=== PATIENT | female | born 1950 | race Two or more races ===

== ENCOUNTER 2024-09-09 12:00 | Emergency (ER) | payer OTHER ==
[~2024-09-09] VITALS: Ht 157.5 cm; Wt 69.5 kg
--- NOTE | 2024-09-09 12:25 | ED.PDOC ---
SOB-HPI HPI Comments 74 year old female accompanied by step-sister presents to the ED with chief complaint of SOB. Patient reports that she was being seen at the [facility] due to having been experiencing SOB for the past week and a syncopal episode earlier today. Patient relays that she did not hit her head as her step-sister caught her before she could fall. Patient states she is normally on 3L of O2 all day due to COPD. Patient notes that in June of this year, she was admitted to a hospital for 2 weeks due to an AK and later a CVA. Patient reports that the [facility] advised her to come to the ED for a CT of her brain due to the syncopal episode. Patient denies any chest pain, fever, chills, N/V, dizziness, headache, or head injury. Time Seen by MD: 12:20 Reviewed notes: Nurses Notes, Medications, Allergies Information Source: Patient, Relative (Step-sister) Mode of Arrival: Wheelchair Severity: Moderate Timing: Days Duration: Since onset Context: At Rest PE Risk Factors: None History of: COPD, CHF Prehospital treatment: Oxygen Modifying Factors: Nothing Associated Signs and Symptoms: None Past Medical History PAST MEDICAL HISTORY: Cancer, CHF, COPD, CVA, DM, High Lipids, HTN, AK Surgical History (Other): Bilateral Mastectomy GEAR GRINDER History: Denies all GEAR GRINDER Hx Family History Family History: Reviewed,noncontributory to illness Social History Smoker: Non-Smoker Alcohol: Denies ETOH Use Drugs: Denies Drug Use Lives In: Home Constitutional: denies: chills, diaphoresis, fatigue, fever, malaise, sweats, weakness, others EENTM: denies: blurred vision, double vision, ear bleeding, ear discharge, ear drainage, ear pain, ear ringing, eye pain, eye redness, hearing loss, mouth pain, mouth swelling, nasal discharge, nose bleeding, nose congestion, nose pain, photophobia, tearing, throat pain, throat swelling, voice changes, others Respiratory: reports: shortness of breath; denies: cough, hemoptysis, orthopnea, SOB at rest, SOB with excertion, stridor, wheezing, others Cardiovascular: reports: syncope; denies: chest pain, dizzy spells, diaphoresis, Dyspnea on exertion, edema, irregular heart beat, left arm pain, lightheadedness, palpitations, PND, others Gastrointestinal: denies: abdomen distended, abdominal pain, blood streaked bowels, constipated, diarrhea, dysphagia, difficulty swallowing, hematemesis, melena, nausea, poor appetite, poor fluid intake, rectal bleeding, rectal pain, vomiting, others Genitourinary: denies: abnormal vagina bleeding, burning, dyspareunia, dysuria, flank pain, frequency, hematuria, incontinence, pain, , vagina discharge, urgency, others Neurological: denies: dizziness, fainting, headache, left sided numbness, left sided weakness, numbness, paresthesia, pre-existing deficit, right sided numbness, right sided weakness, seizure, speech problems, tingling, tremors, weakness, others Musculoskeletal: denies: back pain, gout, joint pain, joint swelling, muscle pain, muscle stiffness, neck pain, others Integumetry: denies: bruises, change in color, change in hair/nails, dryness, laceration, lesions, lumps, rash, wounds, others Allergic/Immunocompromised: denies: Difficulty Healing, Frequent Infections, Hives, Itching, others Hematologic/Lymphatic: denies: anemia, blood clots, easy bleeding, easy bruising, swollen glands, others Endocrine: denies: excessive hunger, excessive sweating, excessive thirst, excessive urination, flushing, intolerance to cold, intolerance to heat, unexplained weight gain, unexplained weight loss, others Psychiatric: denies: anxiety, bipolar disorder, depression, hopeless, panic disorder, schizophrenia, sleepless, suicidal, others All Other Systems: Reviewed and Negative Physical Exam General Appearance: Moderate Distress HEENT: Normal ENT Inspection, Pharynx Normal, TMs Normal Neck: Full Range of Motion, Non-Tender, Normal, Normal Inspection Respiratory: Chest Non-Tender, Lungs Clear, No Accessory Muscle Use, No Respiratory Distress, Normal Breath Sounds Cardiovascular: No Edema, No JVD, No Murmur, No Gallop, Normal Peripheral Pulses, Regular Rate/Rhythm Breast Exam: Deferred Gastrointestinal: No Organomegaly, Non Tender, No Pulsatile Mass, Normal Bowel Sounds, Soft Genitalia: Deferred Pelvic: Deferred Rectal: Deferred Extremities: No calf tenderness, Normal capillary refill, No pedal edema Musculoskeletal : Apperance: Normal Neurologic: Alert, time study technician II-XII nml as Tested, Motor Weakness, Normal Affect, Normal Mood, No Sensory Deficits Cerebellar Function: Normal Reflexes: Normal Skin: Dry, Pallor, Warm Lymphatic: No Adenopathy EKG EKG : Pulse Rate (adult): 71 [place]: Normal Cardiac Rhythm: Afib Block: None Hypertrophy: None ST: Normal Was a procedure done? Was a procedure done?: No Differential Dx Differential Diagnosis: CHF, COPD, Other (Autonomic dysfunction, syncope) X-Ray, Labs, Meds, VS Vital Signs Date Time Temp Pulse Resp B/P (MAP) Pulse Ox O2 Delivery O2 Flow Rate FiO2 09/09/24 13:46 98.1 63 19 144/68 (93) 100 98.1 09/09/24 12:35 71 09/09/24 12:24 71 09/09/24 12:21 97.8 78 20 127/91 (103) 99 97.8 Lab Test 09/09/24 13:30 09/09/24 13:16 09/09/24 12:43 09/09/24 12:20 Range/Units Troponin I High Sensitivity 5 5 </=34 ng/L Influenza Type A Antigen Negative Negative Influenza Type B Antigen Negative Negative SARS-CoV-2 Antigen (Rapid) Negative NEGATIVE White Blood Count 11.1 H 4.4-10.8 10^3/uL Red Blood Count 4.12 4.0-5.20 10^6/uL Hemoglobin 11.2 L 12.2-16.2 g/dL Hematocrit 34.3 L 36.0-46.0 % Mean Corpuscular Volume 83.1 80.0-100.0 fL Mean Corpuscular Hemoglobin 27.0 L 28.0-32.0 pg Mean Corpuscular Hemoglobin Concent 32.6 32.0-36.0 g/dL Red Cell Distribution Width 15.6 H 11.8-14.3 % Platelet Count 287 140-450 10^3/uL Mean Platelet Volume 9.3 6.9-10.8 fL Neutrophils (%) (Auto) 83.6 H 37.0-80.0 % Lymphocytes (%) (Auto) 7.6 L 10.0-50.0 % Monocytes (%) (Auto) 7.2 0.0-12.0 % Eosinophils (%) (Auto) 1.3 0.0-7.0 % Basophils (%) (Auto) 0.3 0.0-2.0 % Neutrophils # (Auto) 9.3 H 1.6-8.6 10 ^3/uL Lymphocytes # (Auto) 0.8 0.4-5.4 10 ^3/uL Monocytes # (Auto) 0.8 0-1.3 10 ^3/uL Eosinophils # (Auto) 0.1 0-0.8 10 ^3/uL Basophils # (Auto) 0 0-0.2 10 ^3/uL Nucleated Red Blood Cells 0.0 % D-Dimer, Quantitative < 0.19 0.0-0.49 mg/L FEU Sodium Level 136 136-145 mmol/L Potassium Level 4.0 3.5-5.1 mmol/L Chloride Level 95 L 98-107 mmol/L Carbon Dioxide Level 32 H 20-31 mmol/L Anion Gap 9 5-15 Blood Urea Nitrogen 14 9-23 mg/dL Creatinine 0.79 0.550-1.02 mg/dL Glomerular Filtration Rate Calc 78 >90 mL/min BUN/Creatinine Ratio 17.7 10.0-20.0 Serum Glucose 180 H 74-106 mg/dL Calcium Level 10.4 8.7-10.4 mg/dL B-Type Natriuretic Peptide 459.14 0-100 pg/mL POC Glucose 182 H 70-106 mg/dl Head CT indicates: 1. Global brain atrophy and chronic ischemic changes without evidence of acute intracranial process. 2. Fluid in the right mastoid air cells may be due to sterile fluid or mastoiditis. Chest XR indicates: No acute disease. The patient's CBC shows an elevated white blood cell count of 11.1 The rest of the CBC is within normal limits The chemistry panel is within normal limits The BNP is 459.14 The troponin level is negative The influenza a and influenza B are negative The COVID test is negative The patient was being admitted to the hospitalist Images Reviewed?: Images reviewed and evaluated by me Time of 1ST Reevaluation: 14:50 Reevaluation 1ST: Unchanged Patient Education/Counseling: Diagnosis, Treatment, Prognosis Family Education/Counseling: Diagnosis, Treatment, Prognosis Additional Information -Reviewed patient's previous visit(s): None - The following tests were ordered, and results were reviewed by me: CT Head, CBC, BMP, EKG, Chest XR, BNP, D-Dimer, Troponin, COVID, Flu A/B, - Additional information was gathered from interviewing the following independent Historian: Sister - I reviewed and agreed with the following test results read by other provider: CT Head, Chest XR - I discussed treatments and results with medical personnel and: patient and sister Comprehensive systems review obtained and negative except for what is stated in the HPI. Departure 1 Departure Time of Disposition: 14:51 Impression: Primary Impression: Autonomic dysfunction Disposition: 09 ADMITTED INPATIENT Admit to: Tele Condition: Fair Critical Care Note Critical Care Time?: Yes (45 min-critical care time only) Stability Stability form required: Yes Unstable for transfer: Telemetry monitoring (Telemetry monitoring required), ED Physician Assesment (Clinical assesment) Heart Score Heart Score: Heart Score Response (Comments) Value History N/A 0 EKG N/A 0 Age N/A 0 Risk Factors N/A 0 Troponin N/A 0 Total 0 I personally scribed for SB CORDOVA MD ([email or web address]) on 09/09/24 at 12:25. Electronically submitted by Jeffery Kowalski ([email or web address]). I personally scribed for SB CORDOVA MD ([email or web address]) on 09/09/24 at 12:34. Electronically submitted by Jeffery Kowalski ([email or web address]). I personally scribed for SB CORDOVA MD ([email or web address]) on 09/09/24 at 14:02. Electronically submitted by Jeffery Kowalski ([email or web address]). SB CORDOVA MD Sep 09, 2024 12:25
--- NOTE | 2024-09-09 12:25 | ECG ---
[facility] Test Date: 2024-09-09 Test Time: 12:24:00 Pat Name: HOA GARCIA Department: ER Room: Gender: F Assurance Analyst: GP : 1950 Requested By: SB CORDOVA Order Number: [id number] Reading MD: Damian Acevedo Measurements Intervals [place] Rate: 71 P: 0 [place]: 0 QRS: 85 QRSD: 100 T: 51 QT: 382 QTc: 416 Interpretive Statements Atrial fibrillation Anterior infarct, old Minimal ST elevation, lateral leads Electronically Signed On 09-10-2024 20:54:52 PDT by Damian Acevedo Please click the below link to view image of tracing.
[2024-09-09] MEDS ORDERED: methylPREDNISolone SOD SUCC 125 MG/2 ML VL IV ONE (12:30)
--- NOTE | 2024-09-09 13:07 | DVH ---
EXAM: CT HEAD WITHOUT CONTRAST HISTORY: syncope COMPARISON: None TECHNIQUE: Noncontrast axial CT images of the head were performed. Sagittal and coronal reformatted i mages were obtained. This CT exam was performed using 1 or more of the following dose reduction techn iques: Automated exposure control, adjustment of the mA and/or kv according to patient size, or the u se of iterative reconstruction techniques. Radiation Dose: CTDI volume is 51.56 mGy. Dose-length product is 911.47 mGy*cm FINDINGS: There is mild global brain atrophy. There is [id number] decreased attenuation in the periventri cular white matter. There are old lacunar infarcts of the right basal ganglia and bilateral external capsules. No intracranial hemorrhage, mass, midline shift, hydrocephalus, or evidence of acute large vessel infarct. There are atherosclerotic calcifications of the cavernous carotid arteries and left terminal vertebral artery. There are postoperative changes of right cataract extraction surgery. The paranasal sinuses are clear. There is fluid density in the right mastoid air cells. The left mastoi d air cells and bilateral middle ear spaces are clear. No cranial fracture or scalp edema. IMPRESSION: 1. Global brain atrophy and chronic ischemic changes without evidence of acute intracranial process. 2. Fluid in the right mastoid air cells may be due to sterile fluid or mastoiditis.
--- NOTE | 2024-09-09 13:08 | DVH ---
CHEST RADIOGRAPH Indication: sob Technique: Single frontal view of the chest was obtained COMPARISON: None FINDINGS: Lines and Tubes: None Lungs: Clear Pleura: No effusion. No pneumothorax. Cardiomediastinal contours: Unremarkable Bones: Unremarkable IMPRESSION: No acute disease.
[2024-09-09 13:12] LABS: Basophils # (auto) 0 10 ^3/uL (0-0.2); Basophils % (auto) 0.3 % (0.0-2.0); Eosinophils % (auto) 1.3 % (0.0-7.0); Monocytes # (auto) 0.8 10 ^3/uL (0-1.3)
[2024-09-09 13:14] LABS: Eosinophils # (auto) 0.1 10 ^3/uL (0-0.8); Hematocrit 34.3 % (36.0-46.0); Hemoglobin 11.2 g/dL (12.2-16.2); Lymphocytes # (auto) 0.8 10 ^3/uL (0.4-5.4); Lymphocytes % (auto) 7.6 % (10.0-50.0); Mean Corpuscular Hgb Conc. 32.6 g/dL (32.0-36.0); Mean Corpuscular Volume 83.1 fL (80.0-100.0); Monocytes % (auto) 7.2 % (0.0-12.0); Neutrophils # (auto) 9.3 10 ^3/uL (1.6-8.6); Neutrophils % (auto) 83.6 % (37.0-80.0); Platelet Count (auto) 287 10^3/uL (140-450); Red Blood Cells 4.12 10^6/uL (4.0-5.20); Red Cell Distribution Width 15.6 % (11.8-14.3); White Blood Cell 11.1 10^3/uL (4.4-10.8)
[2024-09-09 13:16] LABS: Anion Gap 9 (5-15); Chloride 95 mmol/L (98-107); Sodium 136 mmol/L (136-145)
[2024-09-09 13:17] LABS: Calcium 10.4 mg/dL (8.7-10.4); Carbon Dioxide 32 mmol/L (20-31)
[2024-09-09 13:22] LABS: BUN/Creatinine Ratio 17.7 (10.0-20.0); Blood Urea Nitrogen 14 mg/dL (9-23)
[2024-09-09 13:23] LABS: Glucose 180 mg/dL (74-106)
[2024-09-09 13:46] VITALS: BP 144/68; PULSE 63; RESP 19; TEMP 98.1; O2SAT 100
[2024-09-09 14:26] LABS: COVID19 ANTIGEN SOFIA FIA NEGATIVE (NEGATIVE); Rapid Influenza A Negative (Negative); Rapid Influenza B Negative (Negative)
== END 2024-09-09 16:02 | disposition left against medical advice (07) ==
LOC: ER 12:00
DX: G90.9 Disorder of the autonomic nervous system, unspecified (principal); R06.02 Shortness of breath; I11.0 Hypertensive heart disease with heart failure; I50.9 Heart failure, unspecified; I25.2 Old myocardial infarction; I48.91 Unspecified atrial fibrillation; J44.9 Chronic obstructive pulmonary disease, unspecified; Z20.822 Contact with and (suspected) exposure to COVID-19; Z86.73 Personal history of transient ischemic attack (TIA), and cerebral infarction without residual deficits; Z90.13 Acquired absence of bilateral breasts and nipples; Z98.890 Other specified postprocedural states
CPT/HCPCS: 36415; 70450; 71045; 80048; 82947; 82962; 83880; 84484; 85025; 85379; 87426; 87804; 93005